=== PATIENT | female | born 2000 | race African-American/Black ===

== ENCOUNTER 2019-04-27 01:26 | Emergency (ER) | payer OTHER ==
[2019-04-27 02:14] VITALS: BP 108/68; PULSE 94; TEMP 97.3; BMI 24.4
--- NOTE | 2019-04-27 02:18 | PDOC ---
History of Present Illness - General Chief Complaint: Nausea Stated Complaint: VOMITING,DIAHRREA,WEAKNESS Time Seen by Provider: 04/27/19 02:18 History Source: Patient Exam Limitations: No Limitations - History of Present Illness Initial Comments: 04/27/19 02:18 HPI: 19yo F with no PMH presenting complaining of dry mouth. Around 8:30 developed nausea, experienced multiple 15 episodes of non-bloody diarrhea, dizziness, abdominal pain and dry mouth. While initially nauseous, she read about elderflower, a component of a smoothie she drank in [place] and subsequently developed each of the symptoms she read about. She now denies all symptoms except for mild diffuse abdominal and back discomfort and a dry mouth. Denies chest pain nausea, lightheadedness, SOB, dizziness, fatigue. Didn't take any medications at home. Asking for water in the department. Mother requesting blood test to check for food poisoning and requests for admission. All: NKDA Meds: BC PMH: Denies PSH: Denies SHx: Denies toxic habits Past History - Past Medical History Allergies/Adverse Reactions: Allergies Allergy/AdvReac Type Severity Reaction Status Date / Time No Known Allergies Allergy Verified 04/27/19 03:48 - Psycho Social/Smoking Cessation Hx Smoking History: Unknown if ever smoked Hx Alcohol Use: No Drug/Substance Use Hx: No Review of Systems - Review of Systems Able to Perform ROS?: Yes Is the patient limited [place] proficient: Yes Constitutional: No: Chills, Diaphoresis, Fever, Weakness HEENTM: No: Nose Congestion, Throat Pain Respiratory: No: Cough, Shortness of Breath Cardiac (ROS): Yes: Lightheadedness. No: Chest Pain, Edema, Irregular Heart Rate, Syncope ABD/GI: Yes: Diarrhea, Nausea, Vomiting. No: Constipated, Poor Appetite, Poor Fluid Intake : No: Burning, Dysuria, Frequency Musculoskeletal: No: Muscle Pain, Muscle Weakness Integumentary: No: Bruising, Pruritus, Rash Neurological: No: Headache, Numbness, Tingling, Weakness Endocrine: No: Increased Thirst, Increased Urine Hematologic/Lymphatic: No: Anemia, Blood Clots, Easy Bleeding All Other Systems: Reviewed and Negative *Physical Exam - Vital Signs Last Vital Signs Temp Pulse Resp BP Pulse Ox 97.3 F L 94 H 16 108/68 99 04/27/19 02:10 04/27/19 02:10 04/27/19 02:10 04/27/19 02:10 04/27/19 02:10 - Physical Exam 04/27/19 02:56 Vitals reviewed, AFVSS GEN: Well appearing, appears stated age, NAD, comfortable. AAOx3. HEENT: NCAT, EOMI, PERRL. Sclera anicteric, noninjected. No facial asymmetry. Moist mucous membranes. Normal voice. Trachea midline. CV: RRR, S1/S2, no murmurs / rubs / gallops appreciated. LUNG: CTAB, normal work of breathing. No wheezes, rales, rhonchi. No cough. Speaking full sentences. GI: Soft, NTND, +BS, no guarding, no rebound. No masses. Neg CVAT b/l. EXTREMITIES: 2+ distal pulses. No LE edema. No obvious deformities of all extremities. SKIN: Warm, dry, no rashes appreciated, non-jaundiced. PSYCH: Normal mood and affect. Cooperative and appropriate. NEURO: CN grossly intact. Moving all extremities well. Normal strength and sensation grossly. ED Treatment Course - LABORATORY CBC & Chemistry Diagram: 04/27/19 03:30 04/27/19 03:30 Medical Decision Making - Medical Decision Making 04/27/19 02:58 19yo F with no PMH presenting complaining of dry mouth. AFVSS. Normal physical exam. Mother requesting blood test to check for food poisoning and requests for admission. DDX: Viral gastritis, other viral syndrome, food-bourne pathogen, , less likely primary GI illness. - CBC, CMP, Serum Preg - 1L IVF 04/27/19 04:29 - Labs unremarkable - Patient continues to feel well Dispo: Home Discharge - Discharge Information Problems reviewed: Yes Clinical Impression/Diagnosis: Mouth dryness Condition: Good Disposition: HOME - Admission No - Follow up/Referral Referrals: Jennifer Roberson [Primary Care Provider] - - Patient Discharge Instructions Patient Printed Discharge Instructions: DI for Food Poisoning Additional Instructions: You were seen and evaluated for nausea, vomiting, diarrhea. Follow up with your primary care provider in the next week for further evaluation. Return to the ED for any new or concerning symptoms. - Post Discharge Activity Work/Back to School Note: Back to Work, Back to School, Parent(s) Back to Work Note
--- NOTE | 2019-04-27 02:21 | PDOC ---
Attending Attestation - Resident Resident Name: [email or web address] - ED Attending Attestation I have performed the following: I have examined & evaluated the patient, The case was reviewed & discussed with the resident, I agree w/resident's findings & plan - HPI HPI: 04/27/19 02:30 Pt has food poisoning and had 15 episodes of diarrhea after having a smoothie from her usual smoothie place. SHe usually getsstrawberry banana; today they added elderflower and she had a bad reaction to it. - Physicial Exam PE: 04/27/19 03:48 Exam normal, as per resident 04/27/19 04:32 HEENT normal abd NT ND+BS No flank pain Heart Lungs RRR no C/C?E pt feels great after hydration with 800ml NSS - Medical Decision Making 04/27/19 03:48 NSS given; pt is feeling better 04/27/19 04:32 Pt will go home with no meds. Pt has normal CHem and CBC and not .
[2019-04-27] MEDS ORDERED: SODIUM CHLORIDE 0.9% 500 ML INFUS.BAG IV ONE (02:29)
[2019-04-27 03:53] LABS: BASO % 0.1 % (0-2.0); EOS % 0.2 % (0-4.5); HEMOGLOBIN 14.2 GM/dL (10.7-15.3); LYMPH % 2.2 % (8-40); MCH 31.9 pg (25.7-33.7); MCHC 33.9 g/dl (32.0-36.0); MEAN CELL VOLUME 94.2 fl (80-96); MEAN PLT VOLUME 8.4 fl (7.5-11.1); MONO % 3.9 % (3.8-10.2); NEUT % 93.6 % (42.8-82.8); PLATELET COUNT 229 K/MM3 (134-434); RBC 4.46 M/mm3 (3.60-5.2); RDW 12.3 % (11.6-15.6)
[2019-04-27 04:18] LABS: ALBUMIN 3.8 g/dl (3.4-5.0); BILIRUBIN,TOTAL 0.6 mg/dL (0.2-1); BLOOD UREA NITROGEN 16.6 mg/dL (7-18); CREATININE 1.1 mg/dL (0.55-1.3); POTASSIUM 4.1 mmol/L (3.5-5.1); TOT PROT 8.1 g/dl (6.4-8.2)
== END 2019-04-27 04:53 | disposition home or self-care (01) ==
LOC: JER 01:26
DX: A05.9 Bacterial foodborne intoxication, unspecified (principal); R68.2 Dry mouth, unspecified
CPT/HCPCS: 36415; 80053; 84703; 85025; 99282-25